=== PATIENT | male | born 1970 ===

== ENCOUNTER 2018-03-31 18:41 | Emergency (ER) | payer SELFPAY ==
[2018-03-31 18:42] VITALS: BMI 34.9
[2018-03-31] MEDS ORDERED: Sodium Chloride 0.9% 1,000 ML IV STA (18:58)
--- NOTE | 2018-03-31 19:06 | ED PDOC ---
Arrival/HPI - General Chief Complaint: Altered Mental Status Time Seen by Provider: 03/31/18 18:56 Historian: Patient, EMS - History of Present Illness Narrative History of Present Illness (Text): 47yo male, brought to ER by EMS after patient was found unresponsive on the bathroom floor in his mother's building. Per EMS, patient was given Narcan 2mg IV and 2mg INH after which he was awake. Patient now complaining of dizziness which has been ongoing for the past 2 weeks; he states today he felt dizzy and went into a store and was given "a drink in the store, it was probably laced with something." He also reports fever, nausea and cough. He denies any chest pain, shortness of breath, abdominal pain. Patient has no other medical complaints. Time/Duration: Prior to Arrival Symptom Onset: Sudden Past Medical History - Provider Review Nursing Documentation Reviewed: Yes - Infectious Disease Hx of Infectious Diseases: None - Tetanus Immunization Tetanus Immunization: Up to Date - Cardiac Hx Hypertension: Yes - Endocrine/Metabolic Hx Diabetes Mellitus Type 2: Yes - Psychiatric Hx Depression: Yes Hx Substance Use: No - Suicidal Assessment Feels Threatened In Home Enviroment: No Family/Social History - Physician Review Nursing Documentation Reviewed: Yes Family/Social History: No Known Family HX Smoking Status: Never Smoked Hx Alcohol Use: No Hx Substance Use: No Hx Substance Use Treatment: No Allergies/Home Meds Allergies/Adverse Reactions: Allergies seafood Adverse Reaction (Uncoded 03/31/18 18:42) ANAPHYLAXIS Home Medications: Home Meds Medication Instructions Recorded Confirmed Mirtazapine [Remeron] 30 mg PO 04/03/13 04/03/13 Sertraline [Zoloft] 30 mg PO 04/03/13 04/03/13 Trazodone HCl [Trazodone HCl] 350 mg PO 04/03/13 04/03/13 Review of Systems - Physician Review All systems were reviewed & negative as marked: Yes - Review of Systems Constitutional: Fevers Respiratory: absent: SOB Cardiovascular: absent: Chest Pain Gastrointestinal: absent: Abdominal Pain Neurological: Dizziness Physical Exam Vital Signs Reviewed: Yes Vital Signs Temp Pulse Resp BP Pulse Ox 03/31/18 18:41 98.4 F 97 H 15 121/70 90 L Temperature: Afebrile Blood Pressure: Normal Pulse: Regular Respiratory Rate: Normal Appearance: Positive for: Well-Appearing, Comfortable Pain Distress: None Mental Status: Positive for: Alert and Oriented X 3 - Systems Exam Head: Present: Atraumatic, Normocephalic Pupils: Present: PERRL (2 mm) Extroacular Muscles: Present: EOMI Conjunctiva: Present: Normal Mouth: Present: Moist Mucous Membranes Neck: Present: Normal Range of Motion Respiratory/Chest: Present: Clear to Auscultation, Good Air Exchange. No: Respiratory Distress, Accessory Muscle Use Cardiovascular: Present: Regular Rate and Rhythm, Normal S1, S2. No: Murmurs Abdomen: No: Tenderness, Distention, Peritoneal Signs Upper Extremity: Present: Normal Inspection, Other (no track carrasco noted). No: Cyanosis, Edema Lower Extremity: Present: Normal Inspection. No: Edema Neurological: Present: GCS=15, CN II-XII Intact, Speech Normal Skin: Present: Warm, Dry, Pale. No: Rashes Psychiatric: Present: Alert, Oriented x 3, Normal Insight, Normal Concentration Medical Decision Making ED Course and Treatment: Impression: Drug overdose Plan: -- Labs -- UDS -- Chest X-ray -- EKG -- IV Fluids Progress: 03/31/18 22:03 CBC and CMP reviewed with no acute findings. UDS reviewed and patient is positive for opiates. 03/31/18 22:11 Patient awake, alert and oriented x 3 and is in no acute distress. Heart and lung sounds are normal and clear to auscultation. Patient is stable for discharge home. - Lab Interpretations Lab Results: 03/31/18 19:48 03/31/18 19:48 Lab Results 03/31/18 21:26: Urine Opiates Screen Positive H, Urine Methadone Screen Negative , Ur Barbiturates Screen Negative, Ur Phencyclidine Scrn Negative, Ur Amphetamines Screen Negative, U Benzodiazepines Scrn Negative, U Oth Cocaine Metabols Negative, U Cannabinoids Screen Negative 03/31/18 19:48: Sodium 144, Potassium 3.6, Chloride 104, Carbon Dioxide 26, Anion Gap 18, BUN 12, Creatinine 1.2, Est GFR ( Amer) > 60, Est GFR (Non- Af Amer) > 60, Random Glucose 138 H, Calcium 8.5, Total Bilirubin 0.2, AST 32, ALT 53, Alkaline Phosphatase 48, Total Protein 7.1, Albumin 4.1, Globulin 3.0, Albumin/Globulin Ratio 1.4 03/31/18 19:48: WBC 14.6 H, RBC 4.22, Hgb 13.0 L, Hct 37.7 L, MCV 89.3, MCH 30.8 , MCHC 34.5, RDW 14.1, Plt Count 267, MPV 9.0, Gran % 77.8 H, Lymph % (Auto) 15.3 L, [place] % (Auto) 6.5 H, Eos % (Auto) 0.3 L, Baso % (Auto) 0.1, Gran # 11.33 H, Lymph # (Auto) 2.2, [place] # (Auto) 1.0 H, Eos # (Auto) 0.0, Baso # (Auto ) 0.02 - Medication Orders Current Medication Orders: Discontinued Medications Sodium Chloride (Sodium Chloride 0.9%) 1,000 mls @ 999 mls/hr IV .Q1H1M STA Stop: 03/31/18 19:58 Last Admin: 03/31/18 19:20 Dose: 999 mls/hr eMAR Start Stop Document 03/31/18 19:20 RG (Rec: 03/31/18 20:28 RG [facility] [place]-[id number]) Intravenous Solution Start Date 03/31/18 Start Time 19:20 End Date 03/31/18 End time 20:20 Total Infusion Time 60 - Scribe Statement The provider has reviewed the documentation as recorded by the Scribe (Mercedes Walker) Provider Attestation: All medical record entries made by the Scribe were at my direction and personally dictated by me. I have reviewed the chart and agree that the record accurately reflects my personal performance of the history, physical exam, medical decision making, and the department course for this patient. I have also personally directed, reviewed, and agree with the discharge instructions and disposition. Disposition/Present on Arrival - Present on Arrival Any Indicators Present on Arrival: No History of DVT/PE: No History of Uncontrolled Diabetes: No Urinary Catheter: No History of Decub. Ulcer: No History Surgical Site Infection Following: None - Disposition Have Diagnosis and Disposition been Completed?: Yes Diagnosis: Opiate or related narcotic overdose Disposition: HOME/ ROUTINE Disposition Time: 22:15 Patient Problems: Current Active Problems Problem Status Onset Opiate or related narcotic overdose Acute Condition: FAIR Discharge Instructions (ExitCare): Narcotic Overdose (DC) Additional Instructions: ADRIANNA HUITRON, thank you for letting us take care of you today. Your provider was Aishwarya De La Rosa MD and you were treated for OPIATE OVERDOSE. The emergency medical care you received today was directed at your acute symptoms. If you were prescribed any medication, please fill it and take as directed. It may take several days for your symptoms to resolve. Return to the Emergency Department if your symptoms worsen, do not improve, or if you have any other problems. Please contact your doctor or call one of the physicians/clinics you have been referred to that are listed on the Patient Visit Information form that is included in your discharge packet. Bring any paperwork you were given at discharge with you along with any medications you are taking to your follow up visit. Our treatment cannot replace ongoing medical care by a primary care provider outside of the emergency department. Thank you for allowing the [facility] team to be part of your care today. If you had an X-Ray or CT scan: A Radiologist will review the ED reading if any change in treatment is needed we will contact you. If you had a blood, urine, or wound culture: It will take several days for the results, if any change in treatment is needed we will contact you. If you had an STI test: It will take 48 hours for the results. Please call after 1 week if you have not heard back. Referrals: PCP,NO [Primary Care Provider] - Follow up with primary Forms: [employer] (Senegalese)
[2018-03-31 20:01] LABS: BASO # 0.02 K/mm3 (0.0-2.0); BASO % 0.1 % (0.0-3.0); EOS % 0.3 % (1.5-5.0); GRAN # 11.33 (1.4-6.5); GRAN % 77.8 % (50.0-68.0); LYMPH # 2.2 (1.2-3.4); LYMPH % 15.3 % (22.0-35.0); MEAN CELL VOLUME 89.3 fl (80.0-105.0); MEAN CORPUSCULAR HEMOGLOBIN 30.8 pg (25.0-35.0); MEAN CORPUSCULAR HGB CONC 34.5 g/dl (31.0-37.0); MONO % 6.5 % (1.0-6.0); RBC 4.22 10^6/uL (3.5-6.1); RED CELL DISTRIBUTION WIDTH 14.1 % (11.5-14.5); WHITE BLOOD COUNT 14.6 10^3/ul (4.5-11.0)
[2018-03-31 20:05] LABS: ALB/GLOB RATIO 1.4 (1.1-1.8); ALBUMIN 4.1 g/dL (3.0-4.8); ALT/SGPT 53 U/L (7-56); AST/SGOT 32 U/L (17-59); BLOOD UREA NITROGEN 12 mg/dL (7-21); CALCIUM 8.5 mg/dL (8.4-10.5); GFR AFRICAN-AMERICAN > 60; GFR NON-AFRICAN AMERICAN > 60
[2018-03-31 22:01] LABS: BARBITURATES, UR NEGATIVE (NEGATIVE); BENZODIAZEPINES, UR NEGATIVE (NEGATIVE); OPIATES, UR POSITIVE (NEGATIVE); PHENCYCLIDINE, UR NEGATIVE (NEGATIVE)
[2018-04-01 06:01] VITALS: BP 130/62; PULSE 90; RESP 14; TEMP 98.5; O2SAT 96
--- NOTE | 2018-04-01 14:33 | CARD ---
APPROVED REPORT EKG Measurement Heart [id number] <Conclusion> Normal sinus rhythm Normal ECG
== END 2018-03-31 23:40 | disposition home or self-care (01) ==
LOC: ED 18:41
DX: T50.991A Poisoning by other drugs, medicaments and biological substances, accidental (unintentional), initial encounter (principal); Y92.9 Unspecified place or not applicable; I10 Essential (primary) hypertension; E11.9 Type 2 diabetes mellitus without complications
CPT/HCPCS: 80053; 85025; 93005; 96360; 99285; G0480; J7030